=== PATIENT | female | born 1970 | race Caucasian/White ===

== ENCOUNTER 2019-02-17 13:17 | Emergency (ER) | payer OTHER ==
[2019-02-17 13:33] VITALS: BP 136/85; PULSE 96; TEMP 98.7; BMI 21.7
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
== END 2019-02-17 14:38 | disposition home or self-care (01) ==
LOC: FER 13:17
DX: G50.1 Atypical facial pain (principal); Y04.2XXA Assault by strike against or bumped into by another person, initial encounter; Y93.89 Activity, other specified; Y92.89 Other specified places as the place of occurrence of the external cause; Z87.891 Personal history of nicotine dependence
CPT/HCPCS: 70450-TC; 70486-TC; 99282-25

== ENCOUNTER 2020-11-25 15:35 | Emergency (ER) | payer OTHER ==
[2020-11-25 15:44] VITALS: BMI 22.8
[2020-11-25] MEDS ORDERED: diphenhydrAMINE HCL 25 MG CAPSULE (FP) PO ONE ×2 (16:06→16:25)
[2020-11-25] MEDS ORDERED: predniSONE 20 MG TABLET (UD) PO ONE (16:21)
[2020-11-25] MEDS ORDERED: FAMOTIDINE 10 MG TABLET PO ONE (16:24)
[2020-11-25] MEDS ORDERED: predniSONE 20 MG TABLET (UD) ONE (16:25)
[2020-11-25] MEDS ORDERED: FAMOTIDINE 20 MG TABLET ONE (16:48)
[2020-11-25 17:12] VITALS: BP 108/75; PULSE 78; TEMP 98.2
== END 2020-11-25 19:03 ==
LOC: JER 15:35
DX: T78.40XA Allergy, unspecified, initial encounter (principal)
CPT/HCPCS: 99283-25

== ENCOUNTER 2023-11-26 12:11 | Emergency (ER) | payer OTHER ==
[2023-11-26 12:23] VITALS: BP 108/74; PULSE 75; RESP 18; TEMP 98.6; BMI 20.5
[2023-11-26] MEDS ORDERED: AMOX TR/POT CLAV 875MG/125MG TABLETS (FP) ONE (12:41)
[2023-11-26] MEDS ORDERED: DIPHTH,PERTUSS(ACELL),TET 0.5 ML DISP.SYRIN IM ONE (12:42)
[2023-11-26] MEDS: DIPHTH,PERTUSS(ACELL),TET 0.5 ML DISP.SYRIN IM ONE (12:48)
[2023-11-26] MEDS: AMOX TR/POT CLAV 875MG/125MG TABLETS (FP) PO ONE (12:48)
== END 2023-11-26 13:14 | disposition home or self-care (01) ==
LOC: FER 12:11
PROC: 3E0234Z Introduction of Serum, Toxoid and Vaccine into Muscle, Percutaneous Approach (ICD-10-PCS; principal; 2023-11-26)
DX: S51.852A Open bite of left forearm, initial encounter (principal); W55.01XA Bitten by cat, initial encounter; Z23 Encounter for immunization
CPT/HCPCS: 90471; 90715; 99284-25